=== PATIENT | male | born 1965 | race Caucasian/White ===

== ENCOUNTER → 2021-04-17 11:49 | Outpatient (CLI) | payer BC, SELFPAY ==
--- NOTE | 2021-04-17 12:06 | EKG12_ITS ---
Test Reason : PRE OP Blood Pressure : / mmHG Vent. Rate : 085 BPM Atrial Rate : 085 BPM P-R Int : 116 ms QRS Dur : 088 ms QT Int : 378 ms P-R-T Axes : 056 050 071 degrees QTc Int : 449 ms Normal sinus rhythm Normal ECG Confirmed by ARAMIS BROWN, ALONDRA ([id number]), newspaper managing editor LUCINDA GÓMEZ ([id number]) on 04/18/2021 9:30:58 AM Referred By: Eliel Holman Confirmed By:ALONDRA SELF MD
[2021-04-17 12:18] LABS: Hematocrit 43.6 % (40-54); Hemoglobin 14.6 g/dL (13.0-16.5); Mean Corp Hgb Conc 33.5 g/dL (32-36); Mean Corpuscular Hgb 32.4 pg (27.0-32.0); Mean Corpuscular Volume 96.7 fL (80-94); Mean Platelet Vol. 9.4 fl (6.2-12.0); Platelet Count 276 K/mm3 (150-450); RBC Distribution Width CV 12.6 % (11.6-14.6); RBC Distribution Width SD 45.2 fl (35.1-43.9); Red Blood Count 4.51 M/mm3 (4.6-6.2)
== END ==
PROVIDERS: PCP Family Medicine; Referring Provider Urology; Visit Provider Urology
DX: Z01.810 Encounter for preprocedural cardiovascular examination (principal)
CPT/HCPCS: 36415; 85027; 87635; 93005; C9803; U0005; U0003